=== PATIENT | female | born 1990 | race Caucasian/White ===

== ENCOUNTER 2020-11-16 14:00 | Emergency (ER) | payer OTHER ==
[~2020-11-16] VITALS: Ht 172.7 cm; Wt 125.0 kg
[~2020-11-16 14:00] MED LIST: IBUP-1222 PO; OXYC1TAB14 PO; PREN1TAB60 PO
[2020-11-16] MEDS ORDERED: OXYcodone/APAP 5/325MG TABLET PO ONE (15:00)
[2020-11-16] MEDS ORDERED: KETOROLAC 30 MG/1 ML IM ONE (15:00)
[2020-11-16] MEDS ORDERED: DIAZEPAM 5 MG TABLET PO ONE (15:00)
[2020-11-16] MEDS ORDERED: OXYcodone/APAP 5/325MG TABLET ONE (15:00)
[2020-11-16] MEDS ORDERED: DIAZEPAM 5 MG TABLET ONE (15:00)
[2020-11-16] MEDS ORDERED: KETOROLAC 30 MG/1 ML ONE (15:00)
--- NOTE | 2020-11-16 15:17 | NUR ---
PT BACK IN ROOM. ADMIN MEDS
[2020-11-16 15:22] LABS: MICROSCOPIC AUTO
[2020-11-16] MEDS ORDERED: HYDROmorphone 1 MG/ML, 1ML INJ ONE (15:41)
[2020-11-16] MEDS ORDERED: HYDROmorphone 1 MG/ML, 1ML INJ IM ONE (16:00)
[2020-11-16 16:15] VITALS: BP 143/40
--- NOTE | 2020-11-16 16:17 | NUR ---
PT IN BED, STATES SHE FEELS COMFORTABLE
== END 2020-11-16 16:37 | disposition home or self-care (01) ==
LOC: ED 16:10
DX: N30.00 Acute cystitis without hematuria (principal); M51.16 Intervertebral disc disorders with radiculopathy, lumbar region; Z98.51 Tubal ligation status
CPT/HCPCS: 72110; 81001; 87086; 96372; 99284; J1170; J1885